=== PATIENT | male | born 1965 | race Caucasian/White ===

== ENCOUNTER 2019-01-17 22:39 | Inpatient (IN) | payer SELFPAY ==
[~2019-01-17] VITALS: Ht 193 cm; Wt 87.1 kg
[2019-01-18 00:01] LABS: BASOPHILS ABSOLUTE AUTO 0.04 K/mm3 (0.00-0.23); BASOPHILS PERCENT AUTO 0 % (0-2); EOSINOPHILS ABSOLUTE AUTO 0.01 K/mm3 (0.00-0.68); EOSINOPHILS PERCENT AUTO 0 % (0-6); Hematocrit 29.6 % (37.0-53.0); Hemoglobin 9.7 g/dL (13.5-17.5); IMMATURE GRAN ABSOLUTE AUTO 0.12 K/mm3 (0.00-0.10); IMMATURE GRAN PERCENT AUTO 1 % (0-1); LYMPHOCYTES ABSOLUTE AUTO 2.91 K/mm3 (0.84-5.20); LYMPHOCYTES PERCENT AUTO 18 % (21-46); MONOCYTES ABSOLUTE AUTO 1.03 K/mm3 (0.16-1.47); MONOCYTES PERCENT AUTO 7 % (4-13); Mean Corpuscular HGB 30.3 pg (26.0-34.0); Mean Corpuscular HGB Conc 32.8 g/dL (31.5-36.5); Mean Corpuscular Volume 93 fL (80-100); Mean Platelet Volume 10.5 fL (9.1-12.4); NEUTROPHILS ABSOLUTE AUTO 11.72 K/mm3 (1.96-9.15); NEUTROPHILS PERCENT AUTO 74 % (41-73); Platelet Count 235 K/mm3 (150-400); RDW Coefficient Variation 18.9 % (11.7-14.2); White Blood Cell Count 15.83 K/mm3 (4.00-11.30)
[2019-01-18 00:19] LABS: Alanine Aminotransfer (ALT/SGP 26 U/L (12-78); Albumin, Blood 2.4 g/dL (3.4-5.0); Albumin/Globulin Ratio 0.7 (0.8-1.8); Alk Phos 322 U/L (50-136); Anion Gap 8 mmol/L (6-16); Aspartate Aminotrans (AST/SGOT 44 U/L (12-37); Bilirubin, Total 1.7 mg/dL (0.1-1.0); Blood Urea Nitrogen 16 mg/dL (8-24); Bun/Creatinine Ratio 29.7 (12.0-20.0); CO2, Blood 26 mmol/L (21-32); Chloride, Blood 108 mmol/L (98-108); Creatinine, Blood 0.54 mg/dL (0.60-1.20); Globulin, Blood 3.3 g/dL (2.2-4.0); Glomerular Filtration Rate >60 (60-); Glucose, Blood 80 mg/dL (70-99); Potassium, Blood 3.9 mmol/L (3.5-5.5); Sodium, Blood 142 mmol/L (136-145); Total Protein, Blood 5.7 g/dL (6.4-8.2)
[2019-01-18 01:27] LABS: International Normalized Ratio 1.35; Prothrombin Time Results 13.9 Sec (9.7-11.5)
[2019-01-18 05:45] LABS: BASOPHILS ABSOLUTE AUTO 0.02 K/mm3 (0.00-0.23); BASOPHILS PERCENT AUTO 0 % (0-2); EOSINOPHILS ABSOLUTE AUTO 0.01 K/mm3 (0.00-0.68); EOSINOPHILS PERCENT AUTO 0 % (0-6); Hematocrit 28.8 % (37.0-53.0); Hemoglobin 9.4 g/dL (13.5-17.5); IMMATURE GRAN PERCENT AUTO 1 % (0-1); LYMPHOCYTES ABSOLUTE AUTO 2.58 K/mm3 (0.84-5.20); LYMPHOCYTES PERCENT AUTO 18 % (21-46); MONOCYTES ABSOLUTE AUTO 0.92 K/mm3 (0.16-1.47); MONOCYTES PERCENT AUTO 6 % (4-13); Mean Corpuscular HGB Conc 32.6 g/dL (31.5-36.5); Mean Corpuscular Volume 92 fL (80-100); Mean Platelet Volume 10.2 fL (9.1-12.4); NEUTROPHILS ABSOLUTE AUTO 10.99 K/mm3 (1.96-9.15); NEUTROPHILS PERCENT AUTO 75 % (41-73); Platelet Count 241 K/mm3 (150-400); RDW Coefficient Variation 19.2 % (11.7-14.2); RDW Standard Deviation 63.8 fL (35.1-46.3); Red Blood Cell Count 3.13 M/mm3 (4.30-5.90); White Blood Cell Count 14.62 K/mm3 (4.00-11.30)
[2019-01-18 06:05] LABS: Alanine Aminotransfer (ALT/SGP 25 U/L (12-78); Albumin, Blood 2.2 g/dL (3.4-5.0); Albumin/Globulin Ratio 0.7 (0.8-1.8); Alk Phos 288 U/L (50-136); Anion Gap 7 mmol/L (6-16); Aspartate Aminotrans (AST/SGOT 44 U/L (12-37); Bilirubin, Total 1.5 mg/dL (0.1-1.0); Blood Urea Nitrogen 16 mg/dL (8-24); Bun/Creatinine Ratio 31.6 (12.0-20.0); CO2, Blood 26 mmol/L (21-32); Calcium, Blood 7.6 mg/dL (8.5-10.1); Chloride, Blood 108 mmol/L (98-108); Creatinine, Blood 0.51 mg/dL (0.60-1.20); Glomerular Filtration Rate >60 (60-); Glucose, Blood 77 mg/dL (70-99); Potassium, Blood 3.8 mmol/L (3.5-5.5); Sodium, Blood 141 mmol/L (136-145); Total Protein, Blood 5.2 g/dL (6.4-8.2)
[2019-01-18 11:31] LABS: Automated BF RBC Count 0.116 M/mm3 (0-0); Automated BF WBC Count 1.219 K/mm3 (0-999); Body Fluid WBC Count 1219 /mm3 (0-999); RBC Count, Body Fluid 116000 /mm3 (0-0)
[2019-01-18 11:39] LABS: Glucose, Body Fluid 53 mg/dL
[2019-01-18 11:55] LABS: Appearance, Body Fluid Cloudy (Clear); Color, Body Fluid Red (None-Yellow); Total Cell Count, Body Fluid 100
[2019-01-18 12:31] LABS: International Normalized Ratio 1.32; Prothrombin Time Results 13.6 Sec (9.7-11.5)
[2019-01-18 12:39] LABS: Percent Saturation 43.1 % (20.0-50.0)
--- NOTE | 2019-01-18 13:42 | NUR ---
Echocardiogram completed.
[2019-01-18 14:35] LABS: Source, Urine Clean Catch
[2019-01-18 14:48] LABS: Blood, Urine Neg (Neg); Glucose Qualitative, Urine Neg (Neg); Ketones, Urine 2+ (Neg); Leukocyte Esterase, Urine 1+ (Neg); Nitrite, Urine Neg (Neg); Protein, Urine Neg (Neg); Specific Gravity, Urine 1.015 (1.003-1.022); Urobilinogen, Urine 2+ (Normal)
[2019-01-18 15:10] LABS: Bilirubin, Urine 1+ (Neg)
[2019-01-18 15:11] LABS: Appearance, Urine Clear (Clear); Color, Urine Amber (P-Yellow)
[2019-01-18 15:13] LABS: Bacteria Not Seen /hpf; Red Blood Cells, Urine Not Seen /hpf (0-2); Squamous Epithelial Cells Rare /hpf (Few); White Blood Cells, Urine 0-2 /hpf (0-5)
--- NOTE | 2019-01-18 17:11 | NUR ---
SUMMARY PT RESTING QUIETLY IN BED, HAS BECOME MORE AWAKE AND ALERT T/O THE DAY, PT WENT FOR AN ULTRASOUND GUIDED PARACENTESIS AND SETH WELL, SITE TO THE R FLANK HAS SLOWLY DRAINED SEROUS FLUID AFTERWARDS T/O THE REST OF THE DAY, PT ABLE TO GET UP TO THE BEDSIDE COMMODE WITH 1P ASSIST, PT HAVING LOOSE STOOLS, PT WITH A PICC LINE TO HIS L AC THAT WAS PLACED IN [place] ON THE OF THIS MONTH, BOTH PORTS FLUSH AND DRAW BLOOD EASILY, CXR CONFIRMS PLACEMENT, DR ALDRICH STATES IT IS OK TO USE, DRESSING CHANGED PER PROTOCOL, FAMILY HAS BEEN IN TO SEE THE PT, VSS, NO ACUTE CHANGES, WILL CONT TO MONITOR
[2019-01-19 05:02] LABS: BASOPHILS ABSOLUTE AUTO 0.03 K/mm3 (0.00-0.23); BASOPHILS PERCENT AUTO 0 % (0-2); EOSINOPHILS ABSOLUTE AUTO 0.01 K/mm3 (0.00-0.68); EOSINOPHILS PERCENT AUTO 0 % (0-6); Hematocrit 29.5 % (37.0-53.0); Hemoglobin 9.4 g/dL (13.5-17.5); IMMATURE GRAN ABSOLUTE AUTO 0.13 K/mm3 (0.00-0.10); IMMATURE GRAN PERCENT AUTO 1 % (0-1); LYMPHOCYTES ABSOLUTE AUTO 2.17 K/mm3 (0.84-5.20); LYMPHOCYTES PERCENT AUTO 12 % (21-46); MONOCYTES ABSOLUTE AUTO 0.81 K/mm3 (0.16-1.47); MONOCYTES PERCENT AUTO 5 % (4-13); Mean Corpuscular HGB Conc 31.9 g/dL (31.5-36.5); Mean Corpuscular Volume 91 fL (80-100); Mean Platelet Volume 10.3 fL (9.1-12.4); NEUTROPHILS ABSOLUTE AUTO 14.39 K/mm3 (1.96-9.15); NEUTROPHILS PERCENT AUTO 82 % (41-73); Platelet Count 257 K/mm3 (150-400); RDW Coefficient Variation 18.6 % (11.7-14.2); RDW Standard Deviation 59.6 fL (35.1-46.3); Red Blood Cell Count 3.24 M/mm3 (4.30-5.90); White Blood Cell Count 17.54 K/mm3 (4.00-11.30)
[2019-01-19 05:20] LABS: Alanine Aminotransfer (ALT/SGP 23 U/L (12-78); Albumin, Blood 2.6 g/dL (3.4-5.0); Albumin/Globulin Ratio 0.9 (0.8-1.8); Alk Phos 234 U/L (50-136); Anion Gap 8 mmol/L (6-16); Aspartate Aminotrans (AST/SGOT 35 U/L (12-37); Bilirubin, Total 1.5 mg/dL (0.1-1.0); Blood Urea Nitrogen 15 mg/dL (8-24); Bun/Creatinine Ratio 33.3 (12.0-20.0); CO2, Blood 25 mmol/L (21-32); Calcium, Blood 7.8 mg/dL (8.5-10.1); Chloride, Blood 108 mmol/L (98-108); Creatinine, Blood 0.45 mg/dL (0.60-1.20); Globulin, Blood 2.9 g/dL (2.2-4.0); Glomerular Filtration Rate >60 (60-); Glucose, Blood 75 mg/dL (70-99); Magnesium, Blood 1.9 mg/dL (1.6-2.4); Potassium, Blood 3.7 mmol/L (3.5-5.5); Sodium, Blood 141 mmol/L (136-145); Total Protein, Blood 5.5 g/dL (6.4-8.2)
--- NOTE | 2019-01-19 05:23 | NUR ---
*SHIFT SUMMARY* PT IS ALERT TO SELF AND FAMILY. FOLLOWS DIRECTIONS WELL. USES CALL LIGHT FOR ASSISTANCE AT TIMES. BED ALARM ON. SBA TO BATHROOM, GAIT STILL A LITTLE UNSTEADY. USES WALKER BUT OFTEN PICKS WALKER UP, NEEDS REORIENTING TO HAVE THE WALKER ON THE GROUND AND IN FRONT OF HIM WHEN WALKING. VITALS WERE SLIGHTLY ELEVATED, WERE TAKEN AFTER PT HAD BEEN UP TO BATHROOM. RECHECKED VITALS AFTER PATIENT HAD RESTED IN BED. NO OTHER CHANGES.
[2019-01-19 08:12] LABS: HBSAG SCREEN Negative (Negative); HEP A AB, IGM Negative (Negative); HEP B CORE AB, IGM Negative (Negative); HEP B CORE AB, TOT Negative (Negative); HEP C VIRUS AB 0.2 (0.0-0.9)
--- NOTE | 2019-01-19 13:30 | NUR ---
Patient is sitting in a chair and alert and drinking liquids. Patient openly shared about some of his hurts, habits and hang ups. I listened empathically, discussed the recovery of his whole being (spirit, mind and body), left patient inspirational materials, explored patient's belief system, explored sources of meaning and purpose, provided companionship and prayer. Patient responded well and asked if I could come back tomorrow as well. Patient (at least in the moment) showed signs of restored sundar.
--- NOTE | 2019-01-19 16:54 | NUR ---
Spiritual Care intitial visit: Michael was quite solemn and quietly confused. He smiled at me, but said little--mostly stared out the window. I met with his sister at bedside and listend to her tell me of Michael's life-long العلي with alcoholism. He has been living in [place]. Sandra and her son flew to [place] this week to retrieve Michael from a hospital there. All of Micheal's friends and his life are in [place], and Sandra suspects he will return once he is strong enough. I provided gentle cruise counselor and encouragement to good effect. Sandra would like me to cruise counselor Michael once he is more lucid. She is fearful heis nearing the end of his life. She is asking for Palliative Care involvement for pain/symptom management and help determining a reasonable POC. I will continue to support this pt and family as schedule permits.
--- NOTE | 2019-01-19 19:05 | NUR ---
PT. LYING QUIETLY, PT HAS BEEN CONFUSED OFF AND ON TODAY, SOMETIMES USES CALL LIGHT AND OTHER TIMES GETS UP WITHOUT CALLING. BED ALARM IN PLACE. DIET CHANGED TO CLEAR LIQUIDS AND CONSUMES MORE IF FED. NO COMPLAINTS OF PAIN TODAY
--- NOTE | 2019-01-19 20:31 | NUR ---
PT REFUSED VITAL SIGNS. Alert with slurred speech. has IV clinimix infusing. Has hiccups. Bed alarm on PT had visitors said he was supposed to leave with them. Not currently trying to leave bed or unit.
--- NOTE | 2019-01-20 02:27 | NUR ---
PT HAS REPEATEDLY REMOVED WRAP FROM LT UPPER EXTREMITY PICC LINE AND FLYNN PILL HIS RT WRIST IV SALINE LOCK.
[2019-01-20 05:51] LABS: Alanine Aminotransfer (ALT/SGP 20 U/L (12-78); Albumin, Blood 2.3 g/dL (3.4-5.0); Albumin/Globulin Ratio 0.8 (0.8-1.8); Alk Phos 199 U/L (50-136); Anion Gap 4 mmol/L (6-16); Aspartate Aminotrans (AST/SGOT 32 U/L (12-37); Blood Urea Nitrogen 14 mg/dL (8-24); Bun/Creatinine Ratio 34.9 (12.0-20.0); CO2, Blood 29 mmol/L (21-32); Calcium, Blood 7.8 mg/dL (8.5-10.1); Chloride, Blood 107 mmol/L (98-108); Globulin, Blood 2.8 g/dL (2.2-4.0); Glomerular Filtration Rate >60 (60-); Glucose, Blood 119 mg/dL (70-99); Potassium, Blood 3.5 mmol/L (3.5-5.5); Sodium, Blood 140 mmol/L (136-145); Total Protein, Blood 5.1 g/dL (6.4-8.2)
--- NOTE | 2019-01-20 06:49 | NUR ---
53 yoear old White Male continues alert and confused. He is high fall risk, sets off bed alarm multiple times. up to bsc multiple times and assist to use urinal x1. continues on IV clinimix via PICC line. [employer] ASSOCIATE pulled out his perif [place]. He is on scheduled librium. PT has 4 plus edeam bilat le elevated le above heart level with mild helpful effect. 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 Sister in to provide support.
--- NOTE | 2019-01-20 14:54 | NUR ---
Initial Visit: Palliative Care Consult for Advanced Care Planning. Pt resting in bed upon arrival and denies pain at this time. Pt is A&Ox2. Pt is unable to verbalize current month or year. Pt's speech difficult to understand. He reports his lisp has just recently developed. Pt reports moderate anxiety due to strained relationship with a girlfriend. Pt denies dyspnea at this time. Pt reports plan is to feel better and stay in the hospital as long as it takes. Pt appears to be struggling with visit and conversation at this time. Ended visit to allow Pt to rest. Spoke with Pt's nephew Ángel. Engaged in theapeutic conversation regarding advanced care planning. Ángel reports Pt is still confused but confusion is improving. Ángel also reports the plan is for Pt to move in with Ángel's mom and establishing Pt's with alcohol and drug reahabilitation. Suggested to Ángel to consider terminal carman if disease process does not improve such as caregiving if needed. Discussed the importance of having an advanced directive. Ángel will consider this discussion with Pt and family at a later time. Ángel is aware of Pt's severe pancreatitis and cysts that have been discover. Ángel reports family and Pt will plan accordingly as further testing and information becomes available. No other concerns reported at this time. Instructed Ángel to contact palliative care for any questions or concerns. Will remain available.
--- NOTE | 2019-01-20 15:08 | NUR ---
Late entry from initial visit. Will F/U for symptom management as needed.
--- NOTE | 2019-01-20 19:00 | NUR ---
PT. UP TO BR WITH ASSIST. PLACED OXYGEN ON PATIENT R/T HIS SATS DROPPING WHEN SLEEPING. NO OTHER NOTEABLE CHANGES THIS SHITF. PT. TO HAVE ABD US IN AM. NPO AFTER MIDNOC, DR. ALDRICH WANTS TO SEE IF PANCREATIC CYST INCREASING IN SIZE.
--- NOTE | 2019-01-20 19:05 | NUR ---
Michael appears more lucid today, but is still difficult to understand at times. He is soft-spoken and gracious and told me a little about his love for the ocean. I am uncertain how much he realizes about his illness as yet. We had a anjelica, supportive conversation. Michael smiles easily and responded well to gentle encouragement and affirmation of love in his life. He is non-uatsdin. [facility] will remain available.
--- NOTE | 2019-01-21 05:28 | NUR ---
PT continues on clinimix via PICC line lt AC. He was caught trying to remove PICC line dressing and RN changed PICC dressing and caps. Minimal oral intake. DID drink several sips of applejuice prior to midnight. Now NPO for ABD US this AM. No S/sx of acute alcohol withdrawl. Continues on scheduled librium TID 10 mg. Continues with dysphagia precautions as well as fall precautions. Incontinent of adrian urine x 1 and up to bathroom to toilet several time. Continues with soft slurred speech and minimal conversation. intermittant confusion.
[2019-01-21 05:40] LABS: BASOPHILS ABSOLUTE AUTO 0.03 K/mm3 (0.00-0.23); BASOPHILS PERCENT AUTO 0 % (0-2); EOSINOPHILS ABSOLUTE AUTO 0.06 K/mm3 (0.00-0.68); EOSINOPHILS PERCENT AUTO 0 % (0-6); Hematocrit 25.2 % (37.0-53.0); Hemoglobin 8.2 g/dL (13.5-17.5); IMMATURE GRAN PERCENT AUTO 1 % (0-1); LYMPHOCYTES PERCENT AUTO 18 % (21-46); MONOCYTES ABSOLUTE AUTO 1.16 K/mm3 (0.16-1.47); MONOCYTES PERCENT AUTO 7 % (4-13); Mean Corpuscular HGB 29.6 pg (26.0-34.0); Mean Corpuscular HGB Conc 32.5 g/dL (31.5-36.5); Mean Corpuscular Volume 91 fL (80-100); Mean Platelet Volume 11.1 fL (9.1-12.4); NEUTROPHILS PERCENT AUTO 73 % (41-73); NRBC ABSOLUTE 0.02 K/mm3 (0.00-0.02); NRBC Auto 0.1 /100 WBC (0.0-0.2); Platelet Count 266 K/mm3 (150-400); RDW Coefficient Variation 18.7 % (11.7-14.2); RDW Standard Deviation 60.1 fL (35.1-46.3); Red Blood Cell Count 2.77 M/mm3 (4.30-5.90); White Blood Cell Count 16.15 K/mm3 (4.00-11.30)
--- NOTE | 2019-01-21 06:10 | NUR ---
pt has minimal understanding of iv use and he removed saline lock and repeatedly removed picc line wrap. Poor understanding of fall prevention, sets off bed alarm frequently
--- NOTE | 2019-01-21 06:12 | NUR ---
continues to need reminding about iv and fall prevention. attempted to remove picc line dressing and sets off bed alarm. fall and iv precautions continue
[2019-01-21 06:38] LABS: Alanine Aminotransfer (ALT/SGP 15 U/L (12-78); Albumin/Globulin Ratio 0.7 (0.8-1.8); Alk Phos 208 U/L (50-136); Anion Gap 7 mmol/L (6-16); Aspartate Aminotrans (AST/SGOT 27 U/L (12-37); Bilirubin, Total 0.6 mg/dL (0.1-1.0); Blood Urea Nitrogen 17 mg/dL (8-24); Bun/Creatinine Ratio 40.2 (12.0-20.0); CO2, Blood 28 mmol/L (21-32); Calcium, Blood 7.5 mg/dL (8.5-10.1); Chloride, Blood 106 mmol/L (98-108); Creatinine, Blood 0.42 mg/dL (0.60-1.20); Glomerular Filtration Rate >60 (60-); Glucose, Blood 109 mg/dL (70-99); Potassium, Blood 3.1 mmol/L (3.5-5.5); Sodium, Blood 141 mmol/L (136-145)
--- NOTE | 2019-01-21 11:28 | NUR ---
Patient is able to hold on to his thoughts and has longer stretches of time in which he is grounded in reality. Patient shared about the things he needs to learn in life from his current circumstances, where he wants to head in the future and how sundar and family can help him move forward. I provided pastoral community health counselor, read Psalm 16, explored sources of meaning and purpose, provided emotional support and provided prayer. Patient responded well and showed evidence of spiritual/emotional growth.
--- NOTE | 2019-01-21 14:06 | NUR ---
Asked to see pt. limited involvement due to work and friendship with family. With family allowed information review of symptoms and strategies of future care. Will follow with our department for symptoms and disease managment. When patient alert will facilitate conversation of advance directive. hope is that pt can participate and confirm who he wants as decision maker.
--- NOTE | 2019-01-21 19:30 | NUR ---
SHIFT SUMMARY: PT A&O; SLURRED SPEECH; OCC CONFUSION; COOPERATIVE WITH CARE. TREVER LIBRIUM. CPN STARTED THIS SHIFT; POOR ORAL INTAKE c CLEAR LIQUID DIET. GI CONSULT THIS SHIFT. REPORT GIVEN TO ONCOMING RN.
[2019-01-22 05:19] LABS: BASOPHILS ABSOLUTE AUTO 0.05 K/mm3 (0.00-0.23); BASOPHILS PERCENT AUTO 0 % (0-2); EOSINOPHILS ABSOLUTE AUTO 0.09 K/mm3 (0.00-0.68); EOSINOPHILS PERCENT AUTO 1 % (0-6); Hematocrit 27.4 % (37.0-53.0); Hemoglobin 8.8 g/dL (13.5-17.5); IMMATURE GRAN ABSOLUTE AUTO 0.31 K/mm3 (0.00-0.10); IMMATURE GRAN PERCENT AUTO 2 % (0-1); LYMPHOCYTES ABSOLUTE AUTO 3.11 K/mm3 (0.84-5.20); LYMPHOCYTES PERCENT AUTO 20 % (21-46); MONOCYTES ABSOLUTE AUTO 1.25 K/mm3 (0.16-1.47); MONOCYTES PERCENT AUTO 8 % (4-13); Mean Corpuscular HGB 29.2 pg (26.0-34.0); Mean Corpuscular HGB Conc 32.1 g/dL (31.5-36.5); Mean Corpuscular Volume 91 fL (80-100); Mean Platelet Volume 10.4 fL (9.1-12.4); NEUTROPHILS ABSOLUTE AUTO 11.16 K/mm3 (1.96-9.15); NEUTROPHILS PERCENT AUTO 70 % (41-73); Platelet Count 276 K/mm3 (150-400); RDW Coefficient Variation 19.2 % (11.7-14.2); Red Blood Cell Count 3.01 M/mm3 (4.30-5.90); White Blood Cell Count 15.97 K/mm3 (4.00-11.30)
[2019-01-22 05:31] LABS: International Normalized Ratio 1.19; Prothrombin Time Results 12.4 Sec (9.7-11.5)
--- NOTE | 2019-01-22 05:35 | NUR ---
0330 TOOK OVER CARE OF PATIENT FROM YOCASTA BROWN RN. PT LYING IN BED, EYES CLOSED, APPEARS TO BE RESTING. BREATHING IS EVEN, UNLABORED. NO APPARENT SIGNS OF DISTRESS. CALL LIGHT IS IN REACH.
--- NOTE | 2019-01-22 05:36 | NUR ---
PT LYING IN BED, EYES CLOSED, APPEARS TO BE RESTING. WAKES EASILY TO VERBAL STIMULI. DENIES NEED FOR ANYTHING AT THIS TIME. NO APPARENT SIGNS OF DISTRESS. CALL LIGHT IS IN REACH. NO OTHER CHANGES THIS SHIFT.
[2019-01-22 06:06] LABS: Alanine Aminotransfer (ALT/SGP 18 U/L (12-78); Albumin, Blood 1.9 g/dL (3.4-5.0); Albumin/Globulin Ratio 0.6 (0.8-1.8); Alk Phos 283 U/L (50-136); Anion Gap 6 mmol/L (6-16); Aspartate Aminotrans (AST/SGOT 34 U/L (12-37); Bilirubin, Total 0.6 mg/dL (0.1-1.0); Blood Urea Nitrogen 18 mg/dL (8-24); Bun/Creatinine Ratio 37.4 (12.0-20.0); CO2, Blood 29 mmol/L (21-32); Calcium, Blood 7.5 mg/dL (8.5-10.1); Chloride, Blood 104 mmol/L (98-108); Creatinine, Blood 0.48 mg/dL (0.60-1.20); Globulin, Blood 3.3 g/dL (2.2-4.0); Glomerular Filtration Rate >60 (60-); Glucose, Blood 116 mg/dL (70-99); Phosphorus, Blood 3.7 mg/dL (2.5-4.9); Potassium, Blood 3.5 mmol/L (3.5-5.5); Sodium, Blood 139 mmol/L (136-145); Total Protein, Blood 5.2 g/dL (6.4-8.2); Triglycerides 102 mg/dL (30-160)
--- NOTE | 2019-01-22 07:11 | NUR ---
SHIFT SUMMARY PT IS A 53 Y/O MALE, ADMITTED WITH ENCEPHALOPATHY. HE IS A&O X 2, CALM AND COOPERATIVE WITH CARE. ABLE TO AMBULATE 1PA IN THE ROOM WITH A WALKER. HE DENIED ANY COMPLAINTS OF PAIN, NAUSEA OR SOB DURING THE NIGHT. HE IS ON CONTINUOUS CPN AT 75 ML/HR THROUGH A PICC LINE. NO OTHER ACUTE CHANGES IN PT CONDITION NOTED. REPORT GIVEN TO ONCOMING NURSE.
[2019-01-22 12:38] LABS: Automated BF RBC Count 0.032 M/mm3 (0-0); Automated BF WBC Count 0.762 K/mm3 (0-999); Body Fluid WBC Count 762 /mm3 (0-999); RBC Count, Body Fluid 32000 /mm3 (0-0)
[2019-01-22 13:05] LABS: Total Cell Count, Body Fluid 100
[2019-01-22 13:06] LABS: Appearance, Body Fluid Cloudy (Clear); Color, Body Fluid Amber (None-Yellow)
[2019-01-22 13:07] LABS: Albumin, Body Fluid 1.1 g/dL; Glucose, Body Fluid 100 mg/dL; Lactate Dehydrogenase, Body Fl 317 U/L; Protein, Body Fluid 2.1 g/dL; Triglycerides, Body Fluid 17 mg/dL
[2019-01-22 16:17] LABS: Triglycerides, Body Fluid 17 mg/dL
[2019-01-22 16:30] LABS: Amylase, Body Fluid 1273 U/L
--- NOTE | 2019-01-22 19:18 | NUR ---
SHIFT SUMMARY: NO ACUTE CHANGES TO REPORT THIS SHIFT. PT ALERT; ORIENTED TO SELF AND FAMILY; OCC CONFUSION; SLURRED SPEECH. NO C/O PAIN THIS SHIFT. THORACENTESIS THIS SHIFT; PLANNED ABD MRI FOR 01/23; PT NPO AFTER 0500. CPN @ 75 ML/HR. IV ABX CONTINUING. REPORT GIVEN TO ONCOMING RN.
[2019-01-23 05:17] LABS: BASOPHILS ABSOLUTE AUTO 0.04 K/mm3 (0.00-0.23); BASOPHILS PERCENT AUTO 0 % (0-2); EOSINOPHILS ABSOLUTE AUTO 0.09 K/mm3 (0.00-0.68); EOSINOPHILS PERCENT AUTO 1 % (0-6); Hematocrit 25.9 % (37.0-53.0); Hemoglobin 8.3 g/dL (13.5-17.5); IMMATURE GRAN ABSOLUTE AUTO 0.29 K/mm3 (0.00-0.10); IMMATURE GRAN PERCENT AUTO 2 % (0-1); LYMPHOCYTES ABSOLUTE AUTO 3.14 K/mm3 (0.84-5.20); LYMPHOCYTES PERCENT AUTO 21 % (21-46); MONOCYTES ABSOLUTE AUTO 1.51 K/mm3 (0.16-1.47); MONOCYTES PERCENT AUTO 10 % (4-13); Mean Corpuscular HGB 29.1 pg (26.0-34.0); Mean Corpuscular Volume 91 fL (80-100); Mean Platelet Volume 10.8 fL (9.1-12.4); NEUTROPHILS ABSOLUTE AUTO 10.18 K/mm3 (1.96-9.15); NEUTROPHILS PERCENT AUTO 67 % (41-73); NRBC ABSOLUTE 0.02 K/mm3 (0.00-0.02); NRBC Auto 0.1 /100 WBC (0.0-0.2); Platelet Count 254 K/mm3 (150-400); RDW Coefficient Variation 19.5 % (11.7-14.2); Red Blood Cell Count 2.85 M/mm3 (4.30-5.90); White Blood Cell Count 15.25 K/mm3 (4.00-11.30)
[2019-01-23 05:50] LABS: Alanine Aminotransfer (ALT/SGP 17 U/L (12-78); Albumin, Blood 1.7 g/dL (3.4-5.0); Albumin/Globulin Ratio 0.5 (0.8-1.8); Alk Phos 258 U/L (50-136); Anion Gap 5 mmol/L (6-16); Aspartate Aminotrans (AST/SGOT 38 U/L (12-37); Bilirubin, Total 0.5 mg/dL (0.1-1.0); Blood Urea Nitrogen 17 mg/dL (8-24); Bun/Creatinine Ratio 35.3 (12.0-20.0); CO2, Blood 31 mmol/L (21-32); Calcium, Blood 7.4 mg/dL (8.5-10.1); Chloride, Blood 103 mmol/L (98-108); Creatinine, Blood 0.48 mg/dL (0.60-1.20); Globulin, Blood 3.3 g/dL (2.2-4.0); Glomerular Filtration Rate >60 (60-); Glucose, Blood 116 mg/dL (70-99); Phosphorus, Blood 3.7 mg/dL (2.5-4.9); Potassium, Blood 3.7 mmol/L (3.5-5.5); Sodium, Blood 139 mmol/L (136-145)
--- NOTE | 2019-01-23 06:03 | NUR ---
SHIFT SUMMARY: PT IS ALERT AND ORIENTED WITH SOME MINOR CONFUSION. PT CALLS APPROPRIATELY. PT IS CALM AND COOPERATIVE WITH CARE. PT IS A ONE PERSON ASSIST TO THE BATHROOM WITH FWW AND GAIT BELT. PT SLEPT INTERMITTENTLY THROUGHOUT THE NIGHT. PT DENIES PAIN, NAUSEA, VOMITING, AND SOB. CPN RUNNING THROUGH THE L. ARM PICC LINE. NO ACUTE CHANGES OR COMPLICATIONS THIS SHIFT. BED IN LOW POSITION, CALL LIGHT WITHIN REACH. WILL REPORT TO DAY NURSE.
[2019-01-23 11:01] LABS: C-REACTIVE PROTEIN, EXT RANGE 6.28 mg/dL (0.000-0.300)
--- NOTE | 2019-01-23 16:41 | NUR ---
TRANSFER PT TRANSFERRED TO ROOM 342 FROM 350. REPORT GIVEN TO RODNEY WHITAKER. THIS RN CALLED DELORIS AND NOTIFIED HER OF ROOM CHANGE.
--- NOTE | 2019-01-23 16:44 | NUR ---
ASSUMED CARE OF PATIENT, REPORT RECEIVED FROM RODNEY LAWSON. PATIENT TRANSFERRED TO ROOM 342.
--- NOTE | 2019-01-23 17:07 | NUR ---
SHIFT SUMMARY PT HAS BEEN SLEEPING A LOT OF THE SHIFT AND IS VERY WEAK. PT HAS HAD NO COMPLAINTS OF PAIN. PT'S OXYGEN DOWN TO 1 LITERS VIA NC. THIS RN TRIED TO TAKE OXYGEN FULLY OFF BUT PT'S OXYGEN SATURATION DOWN TO 89% ON ROOM AIR. PT WAS PUT BACK ON 1 LITER AND HAS BEEN SINCE. PT ALSO EXPERIENCING URINARY RETENTION. DR. ALDRICH AWARE AND FLOMAX WAS STARTED. PT VOIDING CLEAR, YELLOW URINE IN SMALL AMOUNTS AT A TIME. CPN INFUSING W/O DIFFICULTY. PLANS FOR PT TO HAVE PARACENTESIS TOMORROW. NO ACUTE CHANGES THIS SHIFT. REPORT GIVEN TO SHERMAN, WHO HAS ASSUMED CARE OF PT. BED ALARM ON AND CALL LIGHT IN REACH.
[2019-01-24 05:46] LABS: BASOPHILS ABSOLUTE AUTO 0.06 K/mm3 (0.00-0.23); BASOPHILS PERCENT AUTO 0 % (0-2); EOSINOPHILS ABSOLUTE AUTO 0.07 K/mm3 (0.00-0.68); EOSINOPHILS PERCENT AUTO 1 % (0-6); Hematocrit 25.3 % (37.0-53.0); Hemoglobin 8.2 g/dL (13.5-17.5); IMMATURE GRAN ABSOLUTE AUTO 0.35 K/mm3 (0.00-0.10); IMMATURE GRAN PERCENT AUTO 3 % (0-1); LYMPHOCYTES ABSOLUTE AUTO 3.89 K/mm3 (0.84-5.20); LYMPHOCYTES PERCENT AUTO 29 % (21-46); MONOCYTES ABSOLUTE AUTO 1.47 K/mm3 (0.16-1.47); MONOCYTES PERCENT AUTO 11 % (4-13); Mean Corpuscular HGB 29.5 pg (26.0-34.0); Mean Corpuscular HGB Conc 32.4 g/dL (31.5-36.5); Mean Corpuscular Volume 91 fL (80-100); Mean Platelet Volume 10.6 fL (9.1-12.4); NEUTROPHILS PERCENT AUTO 56 % (41-73); Platelet Count 240 K/mm3 (150-400); RDW Coefficient Variation 19.5 % (11.7-14.2); RDW Standard Deviation 62.4 fL (35.1-46.3); Red Blood Cell Count 2.78 M/mm3 (4.30-5.90); White Blood Cell Count 13.34 K/mm3 (4.00-11.30)
--- NOTE | 2019-01-24 06:04 | NUR ---
SHIFT SUMMARY PT SLEPT WELL DURING THE NIGHT. UP TO BATHROOM X1 THIS SHIFT. USED URINAL PER SELF AT BEDSIDE DURING THE NIGHT. PT ALERT AND ORIENTED, USING CALL LIGHT APPROPRIATLEY DURING THE NIGHT. HAS TPN AND SANDOSTATIN INFUSING PER PICC WITHOUT DIFFICULTY. NO ACUTE EVENTS NOTED DURING THE NIGHT, WILL CONTINUE TO MONITOR.
[2019-01-24 06:13] LABS: Alanine Aminotransfer (ALT/SGP 18 U/L (12-78); Albumin, Blood 1.6 g/dL (3.4-5.0); Albumin/Globulin Ratio 0.5 (0.8-1.8); Alk Phos 237 U/L (50-136); Amylase, Blood 95 U/L (25-115); Anion Gap 4 mmol/L (6-16); Aspartate Aminotrans (AST/SGOT 35 U/L (12-37); Bilirubin, Total 0.6 mg/dL (0.1-1.0); Blood Urea Nitrogen 16 mg/dL (8-24); Bun/Creatinine Ratio 30.3 (12.0-20.0); CO2, Blood 32 mmol/L (21-32); Calcium, Blood 7.2 mg/dL (8.5-10.1); Chloride, Blood 102 mmol/L (98-108); Creatinine, Blood 0.53 mg/dL (0.60-1.20); Globulin, Blood 3.4 g/dL (2.2-4.0); Glomerular Filtration Rate >60 (60-); Glucose, Blood 121 mg/dL (70-99); Phosphorus, Blood 3.7 mg/dL (2.5-4.9); Potassium, Blood 4.1 mmol/L (3.5-5.5); Sodium, Blood 138 mmol/L (136-145)
--- NOTE | 2019-01-24 07:10 | NUR ---
ASSUMED CARE OF PT- BEDSIDE REPORT COMPLETED WITH NIGHT RODNEY APONTE. PER REPORT PT ALERT AND ORIENTED, SCHEDULED FOR [id number] TODAY. PT NPO PRE PROCEDURE. PT SLEEPING BUT WOKE FOR BEDSIDE REPORT. PT HAS THE CALL LIGHT IN REACH AND CALLS APPROPRIATELY PER REPORT FROM NIGHT RODNEY APONTE. NO CURRENT S&S OF DISTRESS NOTED WILL CTM.
--- NOTE | 2019-01-24 09:10 | NUR ---
SPOKE TO DR SALVADOR- PT BP LOW SBP 107 THIS MORNING, YESTERDAY EVENING PT SBP WAS IN THE 80'S-90'S. PER DR SALVADOR HOLD ALL BP MEDS UNTIL SHE SEES THE PT.
--- NOTE | 2019-01-24 11:15 | NUR ---
DR SALVADOR CAME TO SEE THE PT OK TO HOLD ALL BP MEDS FOR THIS MORNING. NEW ORDERS PLACED WITH PARAMETERS HOLD FOR SBP BELOW 110.
--- NOTE | 2019-01-24 14:18 | NUR ---
RECIEVED A CALL REGUARDING PT HEPATITIS A- SPOKE TO MELCHOR JUAN PT NEGATIVE FOR HEP A IN THE IGM. PT MAY HAVE BEEN EXPOSED BUT DOES NOT LIKELY HAVE AN ACTIVE INFECTION. IF ANY OTHER INDICATION THAT PT MAY BE HEPATITIS A POSSITIVE SHOULD ARRISE PLEASE CALL MELCHOR JUAN .
[2019-01-24 15:15] LABS: Appearance, Body Fluid Hazy (Clear); Color, Body Fluid Yellow (None-Yellow)
[2019-01-24 15:17] LABS: Automated BF WBC Count 0.646 K/mm3 (0-999); Body Fluid WBC Count 646 /mm3 (0-999); RBC Count, Body Fluid 10000 /mm3 (0-0)
[2019-01-24 15:32] LABS: Protein, Body Fluid 1.8 g/dL
[2019-01-24 15:39] LABS: Amylase, Body Fluid 781 U/L
--- NOTE | 2019-01-24 15:56 | NUR ---
Spiritual care visit conducted. Patient has visitors and needing blood draw and so my visit was brief. Patient said he gets bored when everyone is busy and he just has to watch TV. I mentioned to patient that I play guitar and patient said he would like it if I could provide guitar therapy. I will attempt to play guitar next visit. Patient seems to be stabilizing emotionally and his ability to articulate what he wants to say has increased. I will remain available to patient and family.
[2019-01-24 16:15] LABS: Total Cell Count, Body Fluid 100
--- NOTE | 2019-01-24 18:31 | NUR ---
SHIFT SUMMARY- RELAYED THE RESULTS OF THE PARACENTESIS TO DR SALVADOR AND DR SORIANO. DR SORIANO REQUESTED DR SALVADOR TO CALL TO CONFIRM NUMBERS PANCREATIC HOTLINE, MESSAGE WAS RELAYED. AMYLACE WAS ELEVATED BUT TRENDING DOWN, UNCERTAIN IF PT WILL NEED TO BE TRANSFERED FOR ERCP, WILL CTM. FAMILY IS AT THE BEDSIDE, PICC LINE IS PATENT AND RUNNING OCTREOTIDE IN ONE LUMEN AND TPN IN THE OTHER. PT SEEMS TO BE A LITTLE STRONGER THIS MORNING WHEN COMPARED TO PREVIOUS DAYS. PT HAD A PARACENTESIS WITH 3L REMOVED THIS AFTERNOON. PT SLEEPING AT THIS TIME, CALL LIGHT IN REACH.
[2019-01-24 18:38] LABS: Source, Urine Clean Catch
[2019-01-24 18:50] LABS: Bilirubin, Urine Neg (Neg); Blood, Urine Neg (Neg); Glucose Qualitative, Urine Neg (Neg); Ketones, Urine Neg (Neg); Leukocyte Esterase, Urine Neg (Neg); Nitrite, Urine Neg (Neg); Protein, Urine Neg (Neg); Specific Gravity, Urine 1.015 (1.003-1.022); Urobilinogen, Urine NORM (Normal)
[2019-01-24 18:59] LABS: Appearance, Urine Clear (Clear); Color, Urine Yellow (P-Yellow)
[2019-01-25 05:22] LABS: BASOPHILS ABSOLUTE AUTO 0.07 K/mm3 (0.00-0.23); BASOPHILS PERCENT AUTO 1 % (0-2); EOSINOPHILS ABSOLUTE AUTO 0.09 K/mm3 (0.00-0.68); EOSINOPHILS PERCENT AUTO 1 % (0-6); Hematocrit 26.1 % (37.0-53.0); Hemoglobin 8.4 g/dL (13.5-17.5); IMMATURE GRAN ABSOLUTE AUTO 0.45 K/mm3 (0.00-0.10); IMMATURE GRAN PERCENT AUTO 3 % (0-1); LYMPHOCYTES ABSOLUTE AUTO 3.98 K/mm3 (0.84-5.20); LYMPHOCYTES PERCENT AUTO 27 % (21-46); MONOCYTES ABSOLUTE AUTO 1.62 K/mm3 (0.16-1.47); MONOCYTES PERCENT AUTO 11 % (4-13); Mean Corpuscular HGB 29.3 pg (26.0-34.0); Mean Corpuscular HGB Conc 32.2 g/dL (31.5-36.5); Mean Corpuscular Volume 91 fL (80-100); Mean Platelet Volume 10.3 fL (9.1-12.4); NEUTROPHILS ABSOLUTE AUTO 8.29 K/mm3 (1.96-9.15); NEUTROPHILS PERCENT AUTO 57 % (41-73); Platelet Count 274 K/mm3 (150-400); RDW Coefficient Variation 18.8 % (11.7-14.2); RDW Standard Deviation 59.8 fL (35.1-46.3); Red Blood Cell Count 2.87 M/mm3 (4.30-5.90)
--- NOTE | 2019-01-25 05:30 | NUR ---
SHIFT SUMMARY PT APPEARED TO HAVE SLEPT BETTER DURING THE NIGHT TONIGHT. USES URINAL PER SELF. IV TPN AND SANDOSTATIN BOTH INFUSING WITHOUT DIFFICULTY. NO ACUTE CHANGES NOTED.
[2019-01-25 05:47] LABS: Alanine Aminotransfer (ALT/SGP 21 U/L (12-78); Albumin, Blood 1.4 g/dL (3.4-5.0); Albumin/Globulin Ratio 0.4 (0.8-1.8); Alk Phos 233 U/L (50-136); Anion Gap 4 mmol/L (6-16); Aspartate Aminotrans (AST/SGOT 47 U/L (12-37); Bilirubin, Total 0.5 mg/dL (0.1-1.0); Blood Urea Nitrogen 15 mg/dL (8-24); Bun/Creatinine Ratio 30.9 (12.0-20.0); CO2, Blood 30 mmol/L (21-32); Calcium, Blood 7.2 mg/dL (8.5-10.1); Chloride, Blood 102 mmol/L (98-108); Creatinine, Blood 0.49 mg/dL (0.60-1.20); Globulin, Blood 3.4 g/dL (2.2-4.0); Glomerular Filtration Rate >60 (60-); Glucose, Blood 113 mg/dL (70-99); Potassium, Blood 4.7 mmol/L (3.5-5.5); Sodium, Blood 136 mmol/L (136-145); Total Protein, Blood 4.8 g/dL (6.4-8.2)
--- NOTE | 2019-01-25 16:00 | NUR ---
SHIFT SUMMARY NO ACUTE CHANGES. PATIENT DENIES PAIN AND NAUSEA. OCCASSIONAL SHORTNESS OF BREATH R/T ASCITES. 1L 02 PRN NEEDED FOR COMFORT. PATIENT REMAINS NPO WITH TPN RUNNING AT 75 MLS/HR. TRANSFER TO [facility] APPROVED BUT THERE IS A BED DELAY. PATIENT WILL COBRA TRANSFER WHEN BED AVAILABLE. CALL LIGHT IN REACH, WILL CONTINUE TO MONITOR.
--- NOTE | 2019-01-25 22:39 | NUR ---
transfer report to JESUS Coleman RN at [facility] for COBRA transfer on PT being transferred to room 21 unit 14 C bed one. [facility] has accepted transfer and PT will be saline locked for transport VSS. PT denies pain or acute distress.
--- NOTE | 2019-01-25 23:03 | NUR ---
adult Male with hospitalization in [place] where he lived is being COBRA transferred to [facility] Unit 14 C room 21 bed one. His Sister Sandra had asked to be called if tranfer was arranged and I attempted to contact her x 2 and her mailbox was full so contacted his Nephew Ángel Mcfarland and he will notify Sister. PT continues with mild confusion but calm. VSS and denies pain or accute distress. PT to be transported via Medical transport saline locked. He currently is NPO and on TPN at 75 ml hr and Ocunutride at 25 ml hr. Reort to Cece STEVENS and personal belongings sent with PT to [facility].
--- NOTE | 2019-01-25 23:28 | NUR ---
saline locked double lumen PICC line for transport to [facility].
--- NOTE | 2019-01-25 23:30 | NUR ---
PT transferred via nonemergent transport [facility]. Saline locked PICC line personal belongings sent with PT.
== END 2019-01-25 23:00 | disposition short-term general hospital (02) | DRG 896 ==
LOC: ER 22:39 → ERHOLD 22:40 → MEDS 01-18 04:40
PROVIDERS: Emergency Medicine; Family Medicine; Internal Medicine; Internal Medicine Gastroenterology; ADMIT Hospitalist
PROC: 0W9G3ZZ Drainage of Peritoneal Cavity, Percutaneous Approach (ICD-10-PCS; principal; 2019-01-18)
PROC: 30233N1 Transfusion of Nonautologous Red Blood Cells into Peripheral Vein, Percutaneous Approach (ICD-10-PCS; 2019-01-18)
PROC: 02HV33Z Insertion of Infusion Device into Superior Vena Cava, Percutaneous Approach (ICD-10-PCS; 2019-01-18)
DX: F10.230 Alcohol dependence with withdrawal, uncomplicated (principal); G92 Toxic encephalopathy; J18.9 Pneumonia, unspecified organism; K86.3 Pseudocyst of pancreas; E46 Unspecified protein-calorie malnutrition; R64 Cachexia; K86.1 Other chronic pancreatitis; Z51.5 Encounter for palliative care; F17.210 Nicotine dependence, cigarettes, uncomplicated; K70.31 Alcoholic cirrhosis of liver with ascites; F10.20 Alcohol dependence, uncomplicated; D63.8 Anemia in other chronic diseases classified elsewhere
CPT/HCPCS: 36415; 49083; 70030; 71045; 71046; 74177; 74181; 76705; 80048; 80053; 81001; 81003; 82042; 82140; 82150; 82728; 82945; 82947; 83540; 83550; 83605; 83615; 83690; 83735; 83880; 84100; 84134; 84145; 84157; 84478; 84630; 85025; 85610; 85651; 85730; 86140; 86317; 86704; 86705; 86708; 86709; 86803; 87040; 87070; 87205; 87340; 88108; 89051; 92610; 93306; 96374-59; 96375; 99285-25; C9113; J0696; J1650; J2060; J2185; J2354; J3411; J7050; P9046; Q9967

== ENCOUNTER 2019-02-19 12:01 | Inpatient (IN) | payer OTHER ==
[~2019-02-19] VITALS: Ht 190.5 cm; Wt 65.0 kg
[2019-02-19] MEDS ORDERED: Prilosec Otc20 MG PO (14:34)
[2019-02-19] MEDS ORDERED: PROBIOTIC1 EAC1 (14:35)
[2019-02-19] MEDS ORDERED: CYAN500 (14:35)
[2019-02-19] MEDS ORDERED: ERGO400 (14:35)
[2019-02-19] MEDS ORDERED: CYAN500 PO (14:37)
[2019-02-19] MEDS ORDERED: CHOL10002 PO (14:37)
[2019-02-19] MEDS ORDERED: PROBIOTIC1 EAC3 PO (14:38)
--- NOTE | 2019-02-19 18:56 | NUR ---
ADMIT NOTE/SHIFT SUMMARY RECEIVED REPORT FROM LARISA CASSIDY RN IN ED. PT TO ROOM VIA ARIS ELAINE TRANSFER TO BED. PT ORIENTED TO ROOM AND CALL LIGHT SYSTEM. PT EDUCATED ON FALL RISK AND TO CALL FOR ASSISTANCE IF NEEDED. PT A&OX4. CALM AND COOPERATIVE WITH CARE. PT DENIES PAIN, N/V AND SOB AT THIS TIME. PT RECEIVING IV FLUIDS AND IV ANTIBITOICS. PT HAS DOBBHOFF IN PLACE. REQUESTED MEDICATION LIST FORM MIC VALDEZ, PT STATES SISTER HANDLES MEDICATIONS. VSS. NO OTHER ACUTE CHANGES NOTED DURING SHIFT. WILL CONTINUE TO MONITOR UNITL REPORT GIVEN TO ONCOMING RN.
[2019-02-20 05:40] LABS: BASOPHILS ABSOLUTE AUTO 0.04 K/mm3 (0.00-0.23); BASOPHILS PERCENT AUTO 0 % (0-2); EOSINOPHILS ABSOLUTE AUTO 0.14 K/mm3 (0.00-0.68); EOSINOPHILS PERCENT AUTO 1 % (0-6); Hematocrit 23.7 % (37.0-53.0); Hemoglobin 7.3 g/dL (13.5-17.5); IMMATURE GRAN ABSOLUTE AUTO 0.16 K/mm3 (0.00-0.10); IMMATURE GRAN PERCENT AUTO 1 % (0-1); LYMPHOCYTES PERCENT AUTO 24 % (21-46); MONOCYTES ABSOLUTE AUTO 0.91 K/mm3 (0.16-1.47); MONOCYTES PERCENT AUTO 6 % (4-13); Mean Corpuscular HGB 26.9 pg (26.0-34.0); Mean Corpuscular HGB Conc 30.8 g/dL (31.5-36.5); NEUTROPHILS ABSOLUTE AUTO 9.59 K/mm3 (1.96-9.15); NEUTROPHILS PERCENT AUTO 67 % (41-73); Platelet Count 411 K/mm3 (150-400); RDW Coefficient Variation 16.2 % (11.7-14.2); RDW Standard Deviation 51.9 fL (35.1-46.3); Red Blood Cell Count 2.71 M/mm3 (4.30-5.90); White Blood Cell Count 14.34 K/mm3 (4.00-11.30)
[2019-02-20 05:44] LABS: Mean Corpuscular Volume 88 fL (80-100)
[2019-02-20 06:06] LABS: Alanine Aminotransfer (ALT/SGP 43 U/L (12-78); Albumin, Blood 1.8 g/dL (3.4-5.0); Albumin/Globulin Ratio 0.4 (0.8-1.8); Alk Phos 176 U/L (50-136); Anion Gap 6 mmol/L (6-16); Aspartate Aminotrans (AST/SGOT 35 U/L (12-37); Bilirubin, Total 0.4 mg/dL (0.1-1.0); Blood Urea Nitrogen 13 mg/dL (8-24); Bun/Creatinine Ratio 28.8 (12.0-20.0); CO2, Blood 27 mmol/L (21-32); Chloride, Blood 103 mmol/L (98-108); Creatinine, Blood 0.45 mg/dL (0.60-1.20); Globulin, Blood 4.8 g/dL (2.2-4.0); Glomerular Filtration Rate >60 (60-); Glucose, Blood 88 mg/dL (70-99); Magnesium, Blood 1.7 mg/dL (1.6-2.4); Potassium, Blood 3.8 mmol/L (3.5-5.5); Sodium, Blood 136 mmol/L (136-145); Total Protein, Blood 6.6 g/dL (6.4-8.2)
--- NOTE | 2019-02-20 06:22 | NUR ---
SHIFT SUMMARY PT AWAKE ON/OFF T/O NIGHT. AOX4. VSS. DENIES SOB. REPORTS PAIN IN MID UPPER ABD, MORE W/PALPATION, DENIES NEED FOR PAIN MEDICATION. HAS VERY LITTLE APPETITE, ON CLEAR LIQUID DIET, HAS TRIED A FEW BITES OF JELLO. THIS AM PT STATED HE HAD THE URGE TO "MESS HIMSELF" & WAS NAUSEOUS @THE SAME TIME & WAS AFRAID HE WAS GOING TO HAVE DIARRHEA, HOWEVER IT WAS A FALSE ALARM & NAUSEA WENT AWAY, DENIED THE NEED FOR MEDICATION. SBA W/AMBULATION. CALL LIGHT IS IN REACH.
--- NOTE | 2019-02-20 16:49 | NUR ---
TUBE FEEDING START TUBE FEEDING STARTED AT 1630 AT RATE 50 ML/HR AND FLUSH 110 ML EVERY 4 HOURS PER MECHANICAL MAINTENANCE ORDERS. ENCOURAGED PT TO CALL IF BECOMES NAUSEOUS. NO REQUESTS OR COMPLAINTS AT THIS TIME. CALL LIGHT IN REACH. WILL CONTINUE TO MONITOR.
--- NOTE | 2019-02-20 17:42 | NUR ---
SHIFT SUMMARY PT HAS HAD NO COMPLAINTS OF NAUSEA THIS SHIFT. PT HAS BEEN SLEEPING A LOT. PT AMBULATED AROUND HOSPITAL WITH SISTER THIS AFTERNOON. PT STEADY ON FEET. NO COMPLAINTS OF PAIN THIS SHIFT. TUBE FEEDING STARTED THIS EVENING AT 1630 PER ORDERS. PT DRINKS SMALL AMOUNTS OF CLEARS. PT'S DIET CHANGED TO FULL LIQUID. WILL MONITOR HOW PT TOLERATES DINNER. WILL CONTINUE TO MONITOR AND REPORT TO ONCOMING RN. CALL LIGHT IN REACH.
--- NOTE | 2019-02-21 05:23 | NUR ---
SHIFT SUMMARY PT AWAKE ON/OFF T/O NIGHT. NO ACUTE CHANGES. AOX3, SLOW TO RESPOND, FOLLOWS DIRECTIONS. VSS. DENIES PAIN, NAUSEA, OR SOB. DOBHOFF SET TO CONTINUOUS FEEDING, RATE INCREASED @0430 TO 70ML/HR. PT HAS VERY LITTLE APPETITE & DID NOT EAT MUCH OF HIS DINNER LAST NIGHT. REPORTS ABD IS NOT TENDER TO PALPATION THAN THE DAY BEFORE. IND IN ROOM. HAD MEDIUM SOFT HUTSON BM. CALL LIGHT IN REACH.
[2019-02-21 05:46] LABS: BASOPHILS ABSOLUTE AUTO 0.03 K/mm3 (0.00-0.23); BASOPHILS PERCENT AUTO 0 % (0-2); EOSINOPHILS ABSOLUTE AUTO 0.12 K/mm3 (0.00-0.68); EOSINOPHILS PERCENT AUTO 1 % (0-6); Hematocrit 22.7 % (37.0-53.0); Hemoglobin 6.9 g/dL (13.5-17.5); IMMATURE GRAN ABSOLUTE AUTO 0.07 K/mm3 (0.00-0.10); IMMATURE GRAN PERCENT AUTO 1 % (0-1); LYMPHOCYTES PERCENT AUTO 31 % (21-46); MONOCYTES ABSOLUTE AUTO 0.84 K/mm3 (0.16-1.47); MONOCYTES PERCENT AUTO 8 % (4-13); Mean Corpuscular HGB 26.4 pg (26.0-34.0); Mean Corpuscular HGB Conc 30.4 g/dL (31.5-36.5); Mean Corpuscular Volume 87 fL (80-100); Mean Platelet Volume 9.4 fL (9.1-12.4); NEUTROPHILS ABSOLUTE AUTO 6.35 K/mm3 (1.96-9.15); NEUTROPHILS PERCENT AUTO 59 % (41-73); Platelet Count 389 K/mm3 (150-400); RDW Coefficient Variation 16.1 % (11.7-14.2); RDW Standard Deviation 50.6 fL (35.1-46.3); Red Blood Cell Count 2.61 M/mm3 (4.30-5.90); White Blood Cell Count 10.71 K/mm3 (4.00-11.30)
[2019-02-21 06:10] LABS: Alanine Aminotransfer (ALT/SGP 39 U/L (12-78); Albumin, Blood 1.8 g/dL (3.4-5.0); Albumin/Globulin Ratio 0.4 (0.8-1.8); Alk Phos 174 U/L (50-136); Anion Gap 5 mmol/L (6-16); Aspartate Aminotrans (AST/SGOT 27 U/L (12-37); Bilirubin, Direct <0.1 mg/dL (0.0-0.3); Bilirubin, Indirect Unable to Calculate mg/dL (0.1-0.7); Bilirubin, Total 0.2 mg/dL (0.1-1.0); Blood Urea Nitrogen 11 mg/dL (8-24); Bun/Creatinine Ratio 23.5 (12.0-20.0); CO2, Blood 28 mmol/L (21-32); Calcium, Blood 7.8 mg/dL (8.5-10.1); Chloride, Blood 104 mmol/L (98-108); Creatinine, Blood 0.47 mg/dL (0.60-1.20); Globulin, Blood 4.4 g/dL (2.2-4.0); Glomerular Filtration Rate >60 (60-); Glucose, Blood 101 mg/dL (70-99); Magnesium, Blood 1.7 mg/dL (1.6-2.4); Phosphorus, Blood 3.6 mg/dL (2.5-4.9); Potassium, Blood 3.6 mmol/L (3.5-5.5); Sodium, Blood 137 mmol/L (136-145); Total Protein, Blood 6.2 g/dL (6.4-8.2)
[2019-02-21 06:11] LABS: Prealbumin, Blood 6.5 mg/dL (20.0-40.0)
--- NOTE | 2019-02-21 06:21 | NUR ---
CHANGE IN PT HGB NOTICED HGB @ 6.9 THIS AM AROUND 0600, WHICH IS DOWN FROM 7.3 YESTERDAY. NOTIFIED HOSPITALIST AUGUSTO & HE ORDERED 1 UNIT PRBC. WILL CONTINUE TO MONITOR PT.
[2019-02-21 08:00] LABS: Percent Saturation 19.6 % (20.0-50.0)
--- NOTE | 2019-02-21 16:55 | NUR ---
SHIFT SUMMARY STEPHANIE DENIED PAIN TODAY. TF RUNNING AT GOAL OF 70 WITH 110 CC WATER FLUSH Q4 AND TOLERATING WELL. FULL LIQUID DIET MEALS PROVIDED, BUT VERY POOR APPETITE. INDEPENDENT TO BR. SISTER VISITED. NEW PIV STARTED. DECLINED TO GET OOB FOR MEALS OR WALK IN HALLWAY THIS SHIFT. UNABLE TO STATE WHAT CITY WE ARE IN, OR THE MONTH OR THE YEAR. DOCTOR ELINOR MADE AWARE, AND DISCUSSED THIS WITH HIS SISTER. THIS IS NEW, THOUGH HE IS USUALLY FORGETFUL (PRESENT HERE ALSO) CALL NENA IN REACH, WCTM
[2019-02-22 05:21] LABS: BASOPHILS ABSOLUTE AUTO 0.06 K/mm3 (0.00-0.23); BASOPHILS PERCENT AUTO 1 % (0-2); EOSINOPHILS ABSOLUTE AUTO 0.19 K/mm3 (0.00-0.68); EOSINOPHILS PERCENT AUTO 2 % (0-6); Hematocrit 26.3 % (37.0-53.0); Hemoglobin 8.3 g/dL (13.5-17.5); IMMATURE GRAN ABSOLUTE AUTO 0.09 K/mm3 (0.00-0.10); IMMATURE GRAN PERCENT AUTO 1 % (0-1); LYMPHOCYTES ABSOLUTE AUTO 3.81 K/mm3 (0.84-5.20); LYMPHOCYTES PERCENT AUTO 32 % (21-46); MONOCYTES ABSOLUTE AUTO 0.94 K/mm3 (0.16-1.47); MONOCYTES PERCENT AUTO 8 % (4-13); Mean Corpuscular HGB 26.7 pg (26.0-34.0); Mean Corpuscular HGB Conc 31.6 g/dL (31.5-36.5); Mean Corpuscular Volume 85 fL (80-100); Mean Platelet Volume 9.2 fL (9.1-12.4); NEUTROPHILS PERCENT AUTO 58 % (41-73); Platelet Count 363 K/mm3 (150-400); RDW Coefficient Variation 17.7 % (11.7-14.2); RDW Standard Deviation 54.3 fL (35.1-46.3); Red Blood Cell Count 3.11 M/mm3 (4.30-5.90); White Blood Cell Count 11.99 K/mm3 (4.00-11.30)
[2019-02-22 05:38] LABS: Alanine Aminotransfer (ALT/SGP 38 U/L (12-78); Albumin, Blood 1.9 g/dL (3.4-5.0); Albumin/Globulin Ratio 0.4 (0.8-1.8); Alk Phos 181 U/L (50-136); Anion Gap 6 mmol/L (6-16); Aspartate Aminotrans (AST/SGOT 31 U/L (12-37); Bilirubin, Total 0.4 mg/dL (0.1-1.0); Blood Urea Nitrogen 9 mg/dL (8-24); CO2, Blood 28 mmol/L (21-32); Calcium, Blood 7.9 mg/dL (8.5-10.1); Chloride, Blood 103 mmol/L (98-108); Creatinine, Blood 0.41 mg/dL (0.60-1.20); Globulin, Blood 4.6 g/dL (2.2-4.0); Glomerular Filtration Rate >60 (60-); Glucose, Blood 93 mg/dL (70-99); Potassium, Blood 4.1 mmol/L (3.5-5.5); Sodium, Blood 137 mmol/L (136-145); Total Protein, Blood 6.5 g/dL (6.4-8.2)
--- NOTE | 2019-02-22 07:38 | NUR ---
SUMMARY WHEN ENTERING PT ROOM THIS AM FOUND PTS FEEDING TUBE DISCONNECTED WITH CAP REMOVED RATHER THAN TUBING DISCONNECTED AND WAS RESTING IN A CUP AT BEDSIDE. PT UNAWARE OF HOW TUBE BECAME DISCONNECTED. I ATTEMPTED TO FLUSH DOBHOFF AND WAS UNABLE. OTHER NURSES ATTEMPTED WELL AND UNABLE. PT RESTING IN BED AT THIS TIME IN NO DISTRESS.
--- NOTE | 2019-02-22 12:00 | NUR ---
Dr. Zapien was notified by this student nurse and RN Re: occluded dobhoff which prevented continued tube feeding.
--- NOTE | 2019-02-22 15:37 | NUR ---
Per Dr. Zapien, meds per EMAR was administered to clear Dobhoff line. Feedings were continued once line was cleared.
--- NOTE | 2019-02-22 17:03 | NUR ---
SHIFT SUMMARY A/O X 4. FLAT AFFECT, COOPERATIVE WITH CARE. TUBE FEEDING CONTINUED AT 1537 ONCE DOBHOFF WAS UNCLOGGED. DENIES NAUSEA AND PAIN THIS SHIFT. FULL LIQUID DIET, TOLERATING PO FLUIDS WELL. WILL CONTINUE TO MONITOR.
--- NOTE | 2019-02-22 17:29 | NUR ---
STUDENT HAD PT CARE TODAY. PLEASE REFER TO STUDENT NOTES FOR SHIFT SUMMARY.
--- NOTE | 2019-02-22 18:12 | NUR ---
Michael is soft-spoken and pleasant. He denies fears or concerns. He also denies any pain. He looks much better than previous admission, but is still quite frail. Michael is appreciaitve of companionship and emotional encouragement. He is non-orthodox. He tells me he is uncertain of his future, but feels it will be positive. He has many options and appears hopeful. No immediate needs presented. I will remain available.
--- NOTE | 2019-02-23 03:04 | NUR ---
PT ALERT ORIENTED CALM COOPERATIVE. TOLERATING TUBE FEED AND FULL LIQUID DIET. VOIDS USES URINAL. NO CONSTIPATION OR DIARRHEA. HAS SUPPORTIVE FAMILY.
--- NOTE | 2019-02-23 10:12 | NUR ---
Spiritual care visit conducted. Patient is lying in bed and alert. Patient remembers me from prior visits and welcomes me. Patient gives me a brief descrition of his recent medical condition and briefly talks about his family. Patient's sister, Sandra enters patient's room and because I wanted to give them some time, after some discussion, I left. I will continue to remain available to patient and family.
[2019-02-23] MEDS ORDERED: OCUVITE EYE +1 EACH PO (11:18)
[2019-02-23] MEDS ORDERED: ZINC220 PO (11:20)
[2019-02-23] MEDS ORDERED: NEPHRO-VITE RX1 EACH PO (11:21)
--- NOTE | 2019-02-23 12:19 | NUR ---
Spiritual care visit conducted. I provided a follow up visit. Patient talked more indepth about his anxiety, his coping mechanisms and his family. I listened empathically, provided companionship, pastoral phone counselor and prayer. Patient responded well and showed signs of increased peace.
--- NOTE | 2019-02-23 17:02 | NUR ---
DISCHARGE NOTE: PT HAS BEEN ALERT AND ORIENTED THROUGHOUT THIS SHIFT. PT UP IN CHAIR DURING THIS AFTERNOON. PT DISCHARGED TO HOME WITH SISTER FOR TRANSPORTATION. PT RECEIVED DISCHARGE INSTRUCTIONS FROM ERICK TORRES. PT SELF-AMBULATED OFF THE MEDICAL FLOOR. PT TOOK BELONGINGS UPON DISCHARGE. PT STATED NO CONCERNS OR QUESTIONS REGARDING DISCHARGE INSTRUCTIONS.
== END 2019-02-23 17:09 | disposition home or self-care (01) | DRG 438 ==
LOC: ER 12:01 → MEDS 17:03 → ENPENDDIS 02-23 10:46 → MEDS 02-23 17:09
PROVIDERS: ADMIT Internal Medicine
PROC: 30233N1 Transfusion of Nonautologous Red Blood Cells into Peripheral Vein, Percutaneous Approach (ICD-10-PCS; principal; 2019-02-19)
PROC: 3E0G76Z Introduction of Nutritional Substance into Upper GI, Via Natural or Artificial Opening (ICD-10-PCS; 2019-02-19)
DX: K85.90 Acute pancreatitis without necrosis or infection, unspecified (principal); G92 Toxic encephalopathy; K86.2 Cyst of pancreas; E46 Unspecified protein-calorie malnutrition; Z68.1 Body mass index [BMI] 19.9 or less, adult; R11.2 Nausea with vomiting, unspecified; Z87.891 Personal history of nicotine dependence; D64.9 Anemia, unspecified; F10.20 Alcohol dependence, uncomplicated; K70.30 Alcoholic cirrhosis of liver without ascites
CPT/HCPCS: 36415; 36430; 71045; 74177; 80048; 80053; 80076; 82140; 82180; 82533; 82728; 83540; 83550; 83690; 83735; 84100; 84134; 85025; 86850; 86900; 86901; 86923; 96365-59; 96375; 99285-25; C9113; J1650; J2543; J7030; J7050; P9016; Q9967

== ENCOUNTER → 2019-02-19 | Outpatient (CLI) | payer SELFPAY ==
[~2019-02-19] MED LIST: CHOL10002 PO; CYAN500; CYAN500 PO; ERGO400; NEPHRO-VITE RX1 EACH PO; OCUVITE EYE +1 EACH PO; PROBIOTIC1 EAC1; PROBIOTIC1 EAC3 PO; Prilosec Otc20 MG PO; ZINC220 PO
[2019-02-19 11:28] LABS: Hematocrit 26.6 % (37.0-53.0); Hemoglobin 8.5 g/dL (13.5-17.5); Mean Corpuscular HGB 26.9 pg (26.0-34.0); Mean Corpuscular Volume 84 fL (80-100); Mean Platelet Volume 9.1 fL (9.1-12.4); Platelet Count 491 K/mm3 (150-400); RDW Coefficient Variation 16.4 % (11.7-14.2); RDW Standard Deviation 50.4 fL (35.1-46.3); Red Blood Cell Count 3.16 M/mm3 (4.30-5.90); White Blood Cell Count 23.32 K/mm3 (4.00-11.30)
[2019-02-19 11:43] LABS: Alanine Aminotransfer (ALT/SGP 56 U/L (12-78); Albumin, Blood 2.2 g/dL (3.4-5.0); Albumin/Globulin Ratio 0.4 (0.8-1.8); Alk Phos 239 U/L (40-126); Anion Gap 6 mmol/L (6-16); Aspartate Aminotrans (AST/SGOT 46 U/L (12-37); Bilirubin, Total 0.4 mg/dL (0.1-1.0); Blood Urea Nitrogen 18 mg/dL (8-24); Bun/Creatinine Ratio 28.6 (12.0-20.0); CO2, Blood 31 mmol/L (21-32); Calcium, Blood 8.6 mg/dL (8.5-10.1); Chloride, Blood 95 mmol/L (98-108); Creatinine, Blood 0.63 mg/dL (0.60-1.20); Globulin, Blood 5.5 g/dL (2.2-4.0); Glomerular Filtration Rate >60 (60-); Glucose, Blood 101 mg/dL (70-99); Potassium, Blood 4.1 mmol/L (3.5-5.5); Sodium, Blood 132 mmol/L (136-145); Total Protein, Blood 7.7 g/dL (6.4-8.2)
[2019-02-19 12:48] LABS: BASOPHILS PERCENT MAN 0 % (0-2); EOSINOPHILS PERCENT MAN 0 % (0-6); LYMPHOCYTES ABSOLUTE MAN 4.19 K/mm3 (0.84-5.20); LYMPHOCYTES PERCENT MAN 18 % (21-46); MONOCYTES ABSOLUTE MAN 1.16 K/mm3 (0.16-1.47); MONOCYTES PERCENT MAN 5 % (4-13); NEUTROPHILS ABSOLUTE MAN 17.95 K/mm3 (1.96-9.15); SEG NEUTROPHILS PERCENT MAN 77 % (41-73); TOTAL CELLS COUNTED 100
== END ==
LOC: LAB SHORT 11:23 → LAB EV 11:23
PROVIDERS: Emergency Medicine
DX: R11.2 Nausea with vomiting, unspecified (principal)
CPT/HCPCS: 80053; 83690; 85025